=== PATIENT | male | born 1970 | race Caucasian/White ===

== ENCOUNTER 2019-12-22 17:14 | Emergency (ER) | payer OTHER, SELFPAY ==
[2019-12-22 17:25] VITALS: BP 116/74; PULSE 93; RESP 18; TEMP 36.9; O2SAT 97
--- NOTE | 2019-12-22 17:25 | ED.SKABFB ---
HPI - Skin/Abscess/Foreign Bdy General Chief complaint: Extremity Injury, Upper Stated complaint: right pointer finger lac Time Seen by Provider: 12/22/19 17:25 Source: patient and RN notes reviewed History of Present Illness HPI narrative: Patient is a 49-year-old male who presents the urgent care with complaints of a laceration to the left index finger. Patient states that he did it with a machete while transferring from hand to hand, while cutting weeds. Patient states he should be up-to-date on her tetanus due to several lacerations in the last few years. Bleeding was controlled prior to arrival. No other acute complaints or injuries. No acute distress noted. Patient read the plan of care. Related Data Home Medications Medication Instructions Recorded Confirmed No Home Medications 12/22/19 12/22/19 Allergies Allergy/AdvReac Type Severity Reaction Status Date / Time No Known Allergies Allergy Verified 12/22/19 18:01 Review of Systems Review of Systems: Narrative: CONSTITUTIONAL: Denies fever, chills, or sweats. EYES: Denies visual changes, redness, or discharge. ENT: Denies rhinorrhea, congestion, sore throat, or otalgia. CARDIOVASCULAR: Denies chest pain, palpitations, or edema. RESPIRATORY: Denies cough or dyspnea. GASTROINTESTINAL: Denies abdominal pain, nausea, vomiting, or diarrhea. GENITOURINARY: Denies dysuria or hematuria. SKIN: Reports of a laceration to the left index finger MUSCULOSKELETAL: Denies back pain, joint pain, or myalgia. NEUROLOGIC: Denies headache, numbness, or weakness. All other systems reviewed are negative, except as documented in HPI. PMFSH Comments At the time of my signature, I reviewed and agree with the nursing past medical, surgical, social, and family history. There is no relevant family history pertinent to the patient complaint. Exam Narrative: Exam Narrative: GENERAL: This is a well-nourished, well-developed patient, in no apparent distress. HEAD: normocephalic, atraumatic. EYES: PERRL. Sclera clear/white. Vision is grossly intact. EARS: External ears normal NOSE: External nose normal with no obvious nasal discharge, nares without redness, no rhinorrhea. THROAT: Mucous membranes moist NECK: Neck supple SKIN: 1.5 cm linear laceration to the dorsal aspect of the left index finger, just over the PIP groove NEURO: awake, alert, and oriented to person, place and time. There were no obvious focal neurologic abnormalities. EXTREMITIES: No clubbing, cyanosis, or edema. Course Vital Signs Vital signs: Vital Signs Temperature 98.4 F 12/22/19 17:25 Pulse Rate 93 12/22/19 17:25 Respiratory Rate 18 12/22/19 17:25 Blood Pressure 116/74 12/22/19 17:25 Pulse Oximetry 97 12/22/19 17:25 Temperature 98.4 F 12/22/19 17:25 Pulse Rate 93 12/22/19 17:25 Respiratory Rate 18 12/22/19 17:25 Blood Pressure 116/74 12/22/19 17:25 Pulse Oximetry 97 12/22/19 17:25 reviewed Procedures Laceration Laceration 1: Site: upper extremity (Left index finger) Side (If applicable): left Size (cm): 1.5 Description: linear Local Anesthetic: lidocaine 1% Amount of anesthesia used (mL): 1 Pre-repair: irrigated ([employer] care normal saline) ====== Skin Level ====== Skin layer closed with: vicryl Size (cm): 4-0 ====== Subcutaneous Layer ====== ====== Muscle Layer ====== ====== Tendon Layer ====== Dressin.5 cm linear laceration to the palmar aspect of the left index finger just over the PIP groove. Cleansed with [employer] normal saline/irrigated. 4 sutures placed and 4 Steri-Strips placed. Patient tolerated well. Normal neurovascular exam pre-and post procedure?capillary refill less than 2 seconds to left upper extremity and positive strong left radial pulse. Range of motion within normal limits to left index finger pre-and post procedure. MDM - Skin/Abscess/Foreign Bdy MDM
== END 2019-12-22 18:05 | disposition home or self-care (01) ==
PROVIDERS: Emergency Provider Nurse Practitioner Family
DX: S61.211A Laceration without foreign body of left index finger without damage to nail, initial encounter (principal); W26.0XXA Contact with knife, initial encounter
CPT/HCPCS: 12001; 99212; G0463